=== PATIENT | male | born 1935 | race American Indian/Alaskan Native ===

== ENCOUNTER 2020-08-25 16:37 | Inpatient (IN) | payer MEDICARE, OTHER ==
--- NOTE | 2020-08-25 18:11 | Emergency Department Report ---
Blank Doc - Documentation Documentation: 85-year-old male that was brought by daughter for altered mental status. Shannon zelaya stated has been hallucinating and was sent by urgent care for abnormal EKG and possible UTI. Exam: Neuro exam unremarkable. No one-sided weakness or facial drooping. 1- This is a initial triage assessment/medical screening only. Full assessment and work-up will be completed once the patient is in proper hospital gown, ED bed and in a private room setting. This initial assessment/diagnostic orders/clinical plan/ treatment(s) is/are subject to change based on pt's health status, clinical progression and re-assessment by fellow clinical providers in the ED. Further treatment and workup at subsequent clinical providers discretion. Patient/guardians urged not to elope from ED as their condition may be serious if not clinically assessed and managed. 2-patient consulted with Dr. Georges and agrees to the ED plan of care. 3-sepsis/AMS orders
--- NOTE | 2020-08-25 18:45 | Cat Scan Report ---
CT head/brain wo con INDICATION / CLINICAL INFORMATION: 85 years Male; Altered Mental Status. TECHNIQUE: Routine CT head without contrast. All CT scans at this location are performed using CT dos e reduction for ALARA by means of automated exposure control. COMPARISON: None. FINDINGS: BRAIN / INTRACRANIAL CONTENTS: The motion degrades the image quality despite repeat imaging. 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 There is also mild to moderate cerebral atrophy with associated prominence of the ventricular sy stem. The findings appear most consistent with foci of calcification within the basal ganglia. There is no gross CT evidence of acute intracranial hemorrhage or significant mass effect. There is relative incr eased attenuation within an anterior insular branch of the right MCA which may be exacerbated by the degree of motion. There is no clear evidence of significant edema and correlation be needed regarding thrombus. ORBITS: No significant abnormality of visualized orbits. SINUSES / MASTOIDS: There is a small air-fluid level along the posterior left maxillary sinus. CRANIOCERVICAL JUNCTION: No significant abnormality. ADDITIONAL FINDINGS: None. IMPRESSION: 1. The study is limited by motion. However, there is extensive microvascular angiopathy as described without clear CT evidence of acute intracranial hemorrhage. 2. There is relative increased attenuation within an anterior branch of the right MCA as described at . Signer Name: Ayo Pettit MD Signed: 08/25/2020 6:40 PM Workstation Name: [id number]
[2020-08-25 18:52] LABS: Bilirubin,Urine NEG (Negative); Blood,Urine LG (Negative); Color,Urine Yellow (Yellow); Urobilinogen,Urine < 2.0 mg/dL (<2.0)
[2020-08-25 18:53] LABS: Alanine Aminotransferase 10 units/L (7-56); Albumin 4.7 g/dL (3.9-5); BUN/Creatinine Ratio 13; Blood Urea Nitrogen 12 mg/dL (9-20); Calcium 9.8 mg/dL (8.4-10.2); Hemolysis Index 12
[2020-08-25 18:56] LABS: RBC,Urine > 182.0 /HPF (0.0-6.0)
[2020-08-25 18:57] LABS: Basophils # (Auto) 0.1 K/mm3 (0.0-0.1); Basophils % (Auto) 0.6 % (0.0-1.8); Eosinophils # (Auto) 0.2 K/mm3 (0.0-0.4); Eosinophils % (Auto) 1.4 % (0.0-4.3); Hematocrit 42.7 % (35.5-45.6); Hemoglobin 14.2 gm/dl (11.8-15.2); Lymphocytes # (Auto) 2.4 K/mm3 (1.2-5.4); Lymphocytes % (Auto) 17.4 % (13.4-35.0); Mean Corpuscular HGB Conc 33 % (32-34); Mean Corpuscular Volume 89 fl (84-94); Monocytes # (Auto) 0.9 K/mm3 (0.0-0.8); Monocytes % (Auto) 6.3 % (0.0-7.3); Platelet Count 249 K/mm3 (140-440); Red Blood Count 4.77 M/mm3 (3.65-5.03); Red Cell Distribution Width 16.5 % (13.2-15.2)
[2020-08-25 19:24] LABS: INR 1.03 (0.87-1.13)
[2020-08-25 19:25] LABS: Partial Thromboplastin Time 32.5 Sec. (24.2-36.6)
--- NOTE | 2020-08-25 19:57 | XRay Report ---
CHEST 1 VIEW, 08/25/2020 6:43 PM CLINICAL INFORMATION/INDICATION: Hypertension COMPARISON: None. FINDINGS: SUPPORT DEVICES: None. HEART: There is mild enlargement of the cardiac silhouette. LUNGS/PLEURA: The lungs are clear of focal airspace disease or significant pleural effusion. ADDITIONAL FINDINGS: No additional acute findings. IMPRESSION: 1. No evidence of acute cardiopulmonary process. Signer Name: Elizabeth Nava MD Signed: 08/25/2020 7:52 PM Workstation Name: [id number]
--- NOTE | 2020-08-25 21:51 | Emergency Department Report ---
ED Altered Mental Status HPI - General Chief Complaint: High BP Stated Complaint: HIGH BLOOD PRESSURE PUI?: No Time Seen by Provider: 08/25/20 21:38 Source: patient Mode of arrival: Wheelchair Limitations: No Limitations - History of Present Illness Initial Comments: Patient is an 85-year-old male presents emergency room with complaints of altered mental status and blood pressure. Patient's daughter is at bedside. History is per daughter and patient. Patient is currently alert and oriented x1. Patient is oriented to self only. Patient is disoriented to time and place and situation. Patient answers most questions appropriately though. Patient denies pain. Patient states she is feeling tired. Patient denies chest pain or shortness of breath. Patient's daughter states that the patient has elevated blood pressure and has been altered with confusion and hallucinations. Patient's daughter states that the patient is normally with it. Patient's daughter states that the patient is not at baseline. Patient's daughter states that the patient is compliant with all his blood pressure medications. Patient's daughter states they went to an urgent care and they sent her here to be evaluated. Patient denies recent travel. Patient denies recent international travel. Patient denies exposure to the novel coronavirus. Patient denies sick contacts. Patient denies fever and chills. Patient denies cough. Patient denies diarrhea. Patient denies coming in contact with anybody with symptoms of the novel coronavirus. Complaint: altered mental status, confusion -: Sudden Severity: severe Consistency of Symptoms: waxing and waning Associated Symptoms: malaise, foul smelling urine - Related Data Allergies Allergy/AdvReac Type Severity Reaction Status Date / Time No Known Allergies Allergy Unverified 08/25/20 17:43 ED Review of Systems ROS: Stated complaint: HIGH BLOOD PRESSURE Other details as noted in HPI Comment: Unobtainable due to pts medical conditions ED Past Medical Hx - Past Medical History Previous Medical History?: Yes Hx Hypertension: Yes Hx Asthma: Yes - Surgical History Past Surgical History?: Yes Additional Surgical History: right hip surgery - Family History Family history: no significant - Social History Smoking Status: Never Smoker Substance Use Type: None ED Physical Exam - General Limitations: No Limitations General appearance: alert, in no apparent distress - Head Head exam: Present: atraumatic, normocephalic - Eye Eye exam: Present: normal appearance, PERRL Pupils: Present: normal accommodation - ENT ENT exam: Present: mucous membranes dry - Neck Neck exam: Present: normal inspection - Respiratory Respiratory exam: Present: normal lung sounds bilaterally. Absent: respiratory distress - Cardiovascular Cardiovascular Exam: Present: regular rate, normal rhythm. Absent: systolic murmur, diastolic murmur, rubs, gallop - GI/Abdominal GI/Abdominal exam: Present: soft, normal bowel sounds - Rectal Rectal exam: Present: deferred - Extremities Exam Extremities exam: Present: normal inspection - Back Exam Back exam: Present: normal inspection - Neurological Exam Neurological exam: Present: alert, altered - Psychiatric Psychiatric exam: Present: normal affect, normal mood - Skin Skin exam: Present: warm, dry, intact, normal color. Absent: rash - Assessment Assessment Interval: Baseline - Level of Consciousness 1a. Level of Consciousness: alert/keenly responsive - LOC Questions 1b. LOC Questions: answers 1 question correctly - LOC Command 1c. LOC Commands: performs tasks correctly - Best Gaze 2. Best Gaze: normal - Visual 3. Visual: no visual loss - Facial Palsy 4. Facial Palsy: normal symmetrical movement - Motor Arm 5a. Motor Arm Left: no drift 5b. Motor Arm Right: no drift - Motor Leg 6a. Motor Leg Left: no drift 6b. Motor Leg Right: no drift - Limb Ataxia 7. Limb Ataxia: absent - Sensory 8. Sensory: normal - Best Language 9. Best Language: no aphasia - Dysarthria 10. Dysarthria: normal - Extinction and Inattention 11. 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 Patient's blood pressure still elevated. Patient's blood pressure continues to increase. Patient will be given 20 of hydralazine, IV fluids and IV antibiotics. 08/25/20 21:53 Reevaluation #2: Patient's blood pressure is better. I discussed all results with patient. I discussed plan of care with patient. Patient agrees with plan of care and admission. Patient to be admitted to the hospitalist service. Patient's daughter agrees with admission and plan of care. 08/25/20 22:43 - Lab Data Result diagrams: 08/25/20 18:12 08/25/20 18:12 Lab Results 08/25/20 08/25/20 08/25/20 Range/Units 18:12 18:12 18:12 WBC 13.8 H (4.5-11.0) K/mm3 RBC 4.77 (3.65-5.03) M/mm3 Hgb 14.2 (11.8-15.2) gm/dl Hct 42.7 (35.5-45.6) % MCV 89 (84-94) fl MCH 30 (28-32) pg MCHC 33 (32-34) % RDW 16.5 H (13.2-15.2) % Plt Count 249 (140-440) K/mm3 Lymph % (Auto) 17.4 (13.4-35.0) % [place] % (Auto) 6.3 (0.0-7.3) % Eos % (Auto) 1.4 (0.0-4.3) % Baso % (Auto) 0.6 (0.0-1.8) % Lymph # (Auto) 2.4 (1.2-5.4) K/mm3 [place] # (Auto) 0.9 H (0.0-0.8) K/mm3 Eos # (Auto) 0.2 (0.0-0.4) K/mm3 Baso # (Auto) 0.1 (0.0-0.1) K/mm3 Seg Neutrophils % 74.3 H (40.0-70.0) % Seg Neutrophils # 10.3 H (1.8-7.7) K/mm3 PT 14.1 (12.2-14.9) Sec. INR 1.03 (0.87-1.13) APTT 32.5 (24.2-36.6) Sec. Sodium 134 L (137-145) mmol/L Potassium 4.1 (3.6-5.0) mmol/L Chloride 98.5 (98-107) mmol/L Carbon Dioxide 19 L (22-30) mmol/L Anion Gap 21 mmol/L BUN 12 (9-20) mg/dL Creatinine 0.9 (0.8-1.3) mg/dL Estimated GFR > 60 ml/min BUN/Creatinine Ratio 13 % Glucose 94 (75-100) mg/dL Lactic Acid (0.7-2.0) mmol/L Calcium 9.8 (8.4-10.2) mg/dL Magnesium 2.10 (1.7-2.3) mg/dL Total Bilirubin 0.50 (0.1-1.2) mg/dL AST 20 (5-40) units/L ALT 10 (7-56) units/L Alkaline Phosphatase 138 H (35-129) units/L Total Creatine Kinase (55-170) units/L Troponin T < 0.010 (0.00-0.029) ng/mL Total Protein 7.9 (6.3-8.2) g/dL Albumin 4.7 (3.9-5) g/dL Albumin/Globulin Ratio 1.5 % TSH (0.270-4.200) mlU/mL Urine Color (Yellow) Urine Turbidity (Clear) Urine pH (5.0-7.0) Ur Specific [place] (1.003-1.030) Urine Protein (Negative) mg/dL Urine Glucose (UA) (Negative) mg/dL Urine Ketones (Negative) mg/dL Urine Blood (Negative) Urine Nitrite (Negative) Urine Bilirubin (Negative) Urine Urobilinogen (<2.0) mg/dL Ur Leukocyte Esterase (Negative) Urine WBC (Auto) (0.0-6.0) /HPF Urine RBC (Auto) (0.0-6.0) /HPF U Epithel Cells (Auto) (0-13.0) /HPF Urine Yeast (Budding) /HPF 08/25/20 08/25/20 08/25/20 Range/Units 18:12 18:12 18:12 WBC (4.5-11.0) K/mm3 RBC (3.65-5.03) M/mm3 Hgb (11.8-15.2) gm/dl Hct (35.5-45.6) % MCV (84-94) fl MCH (28-32) pg MCHC (32-34) % RDW (13.2-15.2) % Plt Count (140-440) K/mm3 Lymph % (Auto) (13.4-35.0) % [place] % (Auto) (0.0-7.3) % Eos % (Auto) (0.0-4.3) % Baso % (Auto) (0.0-1.8) % Lymph # (Auto) (1.2-5.4) K/mm3 [place] # (Auto) (0.0-0.8) K/mm3 Eos # (Auto) (0.0-0.4) K/mm3 Baso # (Auto) (0.0-0.1) K/mm3 Seg Neutrophils % (40.0-70.0) % Seg Neutrophils # (1.8-7.7) K/mm3 PT (12.2-14.9) Sec. INR (0.87-1.13) APTT (24.2-36.6) Sec. Sodium (137-145) mmol/L Potassium (3.6-5.0) mmol/L Chloride (98-107) mmol/L Carbon Dioxide (22-30) mmol/L Anion Gap mmol/L BUN (9-20) mg/dL Creatinine (0.8-1.3) mg/dL Estimated GFR ml/min BUN/Creatinine Ratio % Glucose (75-100) mg/dL Lactic Acid 1.90 (0.7-2.0) mmol/L Calcium (8.4-10.2) mg/dL Magnesium (1.7-2.3) mg/dL Total Bilirubin (0.1-1.2) mg/dL AST (5-40) units/L ALT (7-56) units/L Alkaline Phosphatase (35-129) units/L Total Creatine Kinase 163 (55-170) units/L Troponin T (0.00-0.029) ng/mL Total Protein (6.3-8.2) g/dL Albumin (3.9-5) g/dL Albumin/Globulin Ratio % TSH 3.880 (0.270-4.200) mlU/mL Urine Color (Yellow) Urine Turbidity (Clear) Urine pH (5.0-7.0) Ur Specific [place] (1.003-1.030) Urine Protein (Negative) mg/dL Urine Glucose (UA) (Negative) mg/dL Urine Ketones (Negative) mg/dL Urine Blood (Negative) Urine Nitrite (Negative) Urine Bilirubin (Negative) Urine Urobilinogen (<2.0) mg/dL Ur Leukocyte Esterase (Negative) Urine WBC (Auto) (0.0-6.0) /HPF Urine RBC (Auto) (0.0-6.0) /HPF U Epithel Cells (Auto) (0-13.0) /HPF Urine Yeast (Budding) /HPF 08/25/20 08/25/20 Range/Units 20:31 Unknown WBC (4.5-11.0) K/mm3 RBC (3.65-5.03) M/mm3 Hgb (11.8-15.2) gm/dl Hct (35.5-45.6) % MCV (84-94) fl MCH (28-32) pg MCHC (32-34) % RDW (13.2-15.2) % Plt Count (140-440) K/mm3 Lymph % (Auto) (13.4-35.0) % [place] % (Auto) (0.0-7.3) % Eos % (Auto) (0.0-4.3) % Baso % (Auto) (0.0-1.8) % Lymph # (Auto) (1.2-5.4) K/mm3 [place] # (Auto) (0.0-0.8) K/mm3 Eos # (Auto) (0.0-0.4) K/mm3 Baso # (Auto) (0.0-0.1) K/mm3 Seg Neutrophils % (40.0-70.0) % Seg Neutrophils # (1.8-7.7) K/mm3 PT (12.2-14.9) Sec. INR (0.87-1.13) APTT (24.2-36.6) Sec. Sodium (137-145) mmol/L Potassium (3.6-5.0) mmol/L Chloride (98-107) mmol/L Carbon Dioxide (22-30) mmol/L Anion Gap mmol/L BUN (9-20) mg/dL Creatinine (0.8-1.3) mg/dL Estimated GFR ml/min BUN/Creatinine Ratio % Glucose (75-100) mg/dL Lactic Acid (0.7-2.0) mmol/L Calcium (8.4-10.2) mg/dL Magnesium (1.7-2.3) mg/dL Total Bilirubin (0.1-1.2) mg/dL AST (5-40) units/L ALT (7-56) units/L Alkaline Phosphatase (35-129) units/L Total Creatine Kinase (55-170) units/L Troponin T < 0.010 (0.00-0.029) ng/mL Total Protein (6.3-8.2) g/dL Albumin (3.9-5) g/dL Albumin/Globulin Ratio % TSH (0.270-4.200) mlU/mL Urine Color Yellow (Yellow) Urine Turbidity Cloudy (Clear) Urine pH 5.0 (5.0-7.0) Ur Specific [place] 1.019 (1.003-1.030) Urine Protein 100 mg/dl (Negative) mg/dL Urine Glucose (UA) Neg (Negative) mg/dL Urine Ketones Tr (Negative) mg/dL Urine Blood Lg (Negative) Urine Nitrite Neg (Negative) Urine Bilirubin Neg (Negative) Urine Urobilinogen < 2.0 (<2.0) mg/dL Ur Leukocyte Esterase Mod (Negative) Urine WBC (Auto) 182.0 H (0.0-6.0) /HPF Urine RBC (Auto) > 182.0 (0.0-6.0) /HPF U Epithel Cells (Auto) < 1.0 (0-13.0) /HPF Urine Yeast (Budding) 1+ /HPF - EKG Data -: EKG Interpreted by In EKG shows normal: sinus rhythm, axis, intervals, QRS complexes, ST-T waves Rate: tachycardia - Radiology Data Radiology results: report reviewed, image reviewed interpreted by me: Chest x-ray: No pneumonia, no pneumothorax, no foreign body, no osseous findings, no acute findings CHEST 1 VIEW, 08/25/2020 6:43 PM CLINICAL INFORMATION/INDICATION: Hypertension COMPARISON: None. FINDINGS: SUPPORT DEVICES: None. HEART: There is mild enlargement of the cardiac silhouette. LUNGS/PLEURA: The lungs are clear of focal airspace disease or significant pleural effusion. ADDITIONAL FINDINGS: No additional acute findings. IMPRESSION: 1. No evidence of acute cardiopulmonary process. CT head/brain wo con INDICATION / CLINICAL INFORMATION: 85 years Male; Altered Mental Status. TECHNIQUE: Routine CT head without contrast. All CT scans at this location are performed using CT dose reduction for ALARA by means of automated exposure control. COMPARISON: None. FINDINGS: BRAIN / INTRACRANIAL CONTENTS: The motion degrades the image quality despite re peat imaging. 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 There is also mild to moderate cerebral atrophy with associated prominence of the ventricular system. The findings appear most consistent with foci of calcification within the basal ganglia. There is no gross CT evidence of acute intracranial hemorrhage or significant mass effect. There is relative increased attenuation within an anterior insular branch of the right MCA which may be exacerbated by the degree of motion. There is no clear evidence of significant edema and correlation be needed regarding thrombus. ORBITS: No significant abnormality of visualized orbits. SINUSES / MASTOIDS: There is a small air-fluid level along the posterior left maxillary sinus. CRANIOCERVICAL JUNCTION: No significant abnormality. ADDITIONAL FINDINGS: None. IMPRESSION: 1. The study is limited by motion. However, there is extensive microvascular angiopathy as described without clear CT evidence of acute intracranial hemorrhage. 2. There is relative increased attenuation within an anterior branch of the right MCA as described at. - Medical Decision Making Patient is a 85-year-old male who presents emergency room with complaints of a ltered status and elevated blood pressure. Patient is altered and has only oriented x1. Patient had a head CT which was negative for acute finding. Patient had a chest x-ray which was negative for acute findings. I personally reviewed the chest x-ray. Patient had a EKG done and showed normal sinus tachycardia and no ST changes. I personally reviewed the EKG. Patient had labs done which were essentially unremarkable except for a UTI and elevated WBC. Patient found to have extremely elevated blood pressure and hypertensive emergency. Patient given hydralazine 20 mg IV. Patient blood pressure improved. Patient also given IV fluids and IV antibiotics. Patient admitted to the hospital service for further evaluation and treatment. Critical care time documented due to the multiple reassessments, prolonged time at the bedside, interpretation of diagnostics and labs. - Differential Diagnosis AMS, UTI, sepsis, tachycardia, hypertensive emergency, Critical Care Time: Yes Critical care time in (mins) excluding proc time.: 35 Critical care attestation.: If time is entered above; I have spent that time in minutes in the direct care of this critically ill patient, excluding procedure time. Critical Care Time: 35 minutes ED Disposition Clinical Impression: Tachycardia, Hypertensive urgency Altered mental status Qualifiers: Altered mental status type: unspecified Qualified Code(s): R41.82 - Altered mental status, unspecified UTI (urinary tract infection) Qualifiers: Urinary tract infection type: acute cystitis Hematuria presence: with hematuria Qualified Code(s): N30.01 - Acute cystitis with hematuria Sepsis Qualifiers: Sepsis type: sepsis due to unspecified organism Sepsis acute organ dysfunction status: with acute organ dysfunction Severe sepsis acute organ dysfunction type: encephalopathy Severe sepsis shock status: without septic shock Qualified Code(s): A41.9 - Sepsis, unspecified organism Disposition: [id number] OP ADMIT IP TO THIS HOSP Is pt being admited?: Yes Does the pt Need Aspirin: No Condition: Critical Time of Disposition: 22:44
[2020-08-25] MEDS ORDERED: cefTRIAXone/NS 2 GM/100 ML 2 GM/100 ML BAG IV ONE (21:52)
[2020-08-25] MEDS ORDERED: hydrALAZINE 20 MG/1 ML INJ IV ONE (21:52)
[2020-08-25] MEDS ORDERED: SODIUM CHLORIDE 0.9% 500 ML 500 ML IV ONE (21:52)
[2020-08-25] MEDS ORDERED: ONDANSETRON 4 MG/2 ML INJ IV PRN ×2 (22:44→23:05)
[2020-08-25] MEDS ORDERED: D5W/0.45% NACL 1,000 ML IV SCH (23:00)
[2020-08-25] MEDS ORDERED: oxyCODONE /ACETAMINOPHEN 5-325MG TAB PO PRN (23:02)
[2020-08-25] MEDS ORDERED: NALOXONE 0.4 MG/1 ML INJ IV PRN (23:02)
[2020-08-25] MEDS ORDERED: MORPHINE 4 MG/1 ML INJ IV PRN (23:02)
[2020-08-25] MEDS ORDERED: hydrALAZINE 20 MG/1 ML INJ IV PRN (23:05)
--- NOTE | 2020-08-25 23:25 | History and Physical Report ---
History of Present Illness Date of examination: 08/25/20 Date of admission: 08/25/2020 Chief complaint: AMS, elevated BP History of present illness: 85-year-old -[place] male who is a resident of the [facility], with history of hypertension and asthma who presents [facility] ED with complaints of altered mental status and elevated blood pressure. Of note patient is oriented x1-2, able to answer short questions appropriately, but unable to provide histo ry. History is provided by medical reports and review of medical records. Patient's daughter reports taking her father to urgent care after noticing that he was confused and was hallucinating. Per daughter patient is not at baseline and is usually " with it", so she decided to take an urgent care. While the urgent care at urgent care pt BP was elevated and he was referred to ER for further evaluation and treatment. Daughter reports compliance with BP meds. Past History Past Medical History: hypertension, other (asthma) Past Surgical History: Other (right hip surgery) Social history: full code, other (lives in [facility] denies: smoking, alcohol abuse, prescription drug abuse, IV drug use Family history: no significant family history Medications and Allergies Allergies Allergy/AdvReac Type Severity Reaction Status Date / Time No Known Allergies Allergy Verified 08/25/20 22:52 Active Meds: Active Medications Acetaminophen (Acetaminophen 325 Mg Tab) 650 mg PO Q4H PRN PRN Reason: Pain MILD(1-3)/Fever >100.5/PULLIAM Hydralazine HCl (Hydralazine 20 Mg/1 Ml Inj) 10 mg IV Q6HR PRN PRN Reason: Blood Pressure Dextrose/Sodium Chloride (D5/0.45ns) 1,000 mls @ 75 mls/hr IV DIRECT ML Stop: 08/26/20 12:00 Ceftriaxone Sodium (Rocephin/Ns 1 Gm/50 Ml) 1 gm in 50 mls @ 100 mls/hr IV Q24H ML; Protocol Morphine Sulfate (Morphine 4 Mg/1 Ml Inj) 2 mg IV Q4H PRN PRN Reason: Pain , Severe (7-10) Naloxone HCl (Naloxone 0.4 Mg/1 Ml Inj) 0.1 mg IV Q2MIN PRN PRN Reason: Res Rate </= 8 or 02 SAT < 92% Ondansetron HCl (Ondansetron 4 Mg/2 Ml Inj) 4 mg IV Q6H PRN PRN Reason: Nausea And Vomiting Oxycodone/Acetaminophen (Oxycodone /Acetaminophen 5-325mg Tab) 1 tab PO Q6H PRN PRN Reason: Pain, Moderate (4-6) Sodium Chloride (Sodium Chloride 0.9% 10 Ml Flush Syringe) 10 ml IV BID ML Sodium Chloride (Sodium Chloride 0.9% 10 Ml Flush Syringe) 10 ml IV PRN PRN PRN Reason: LINE FLUSH Review of Systems ROS unobtainable: due to mental status Exam - Physical Exam Narrative exam: Physical exam General appearance: Present: No acute distress, awake, oriented x1-2, older adult, -[place] male - EENT Eyes: Present: PERRL, EOM intact ENT: hearing intact, normal dentition - Neck Neck: Present: supple, normal ROM - Respiratory Respiratory effort: Non-labored Respiratory: Clear throughout - Cardiovascular Heart rate: 110 (bpm) Rhythm: Sinus tachycardia Heart Sounds: Present: S1 & S2. Absent: rub, click - Extremities Extremities: no ischemia, pulses intact, - Peripheral Assessment Peripheral Pulses: within normal limits - Abdominal General gastrointestinal: soft, non-tender, normal bowel sounds - Integumentary Integumentary: Present: warm, dry - Musculoskeletal Musculoskeletal: Able to move all extremities, generalized weakness -Neurological Neurological: CN II-XII intact - Psychiatric Psychiatric:cooperative - Constitutional Vitals: Temp Pulse Resp BP Pulse Ox 97.7 F 100 H 21 162/97 100 08/25/20 21:30 08/25/20 23:00 08/25/20 23:00 08/25/20 23:00 08/25/20 23:00 HEART Score - HEART Score Troponin: Troponin T < 0.010 ng/mL (0.00-0.029) 08/25/20 20:31 Results - Labs CBC & Chem 7: 08/25/20 18:12 08/25/20 18:12 Labs: Laboratory Last Values WBC 13.8 K/mm3 (4.5-11.0) H 08/25/20 18:12 RBC 4.77 M/mm3 (3.65-5.03) 08/25/20 18:12 Hgb 14.2 gm/dl (11.8-15.2) 08/25/20 18:12 Hct 42.7 % (35.5-45.6) 08/25/20 18:12 MCV 89 fl (84-94) 08/25/20 18:12 MCH 30 pg (28-32) 08/25/20 18:12 MCHC 33 % (32-34) 08/25/20 18:12 RDW 16.5 % (13.2-15.2) H 08/25/20 18:12 Plt Count 249 K/mm3 (140-440) 08/25/20 18:12 Lymph % (Auto) 17.4 % (13.4-35.0) 08/25/20 18:12 [place] % (Auto) 6.3 % (0.0-7.3) 08/25/20 18:12 Eos % (Auto) 1.4 % (0.0-4.3) 08/25/20 18:12 Baso % (Auto) 0.6 % (0.0-1.8) 08/25/20 18:12 Lymph # (Auto) 2.4 K/mm3 (1.2-5.4) 08/25/20 18:12 [place] # (Auto) 0.9 K/mm3 (0.0-0.8) H 08/25/20 18:12 Eos # (Auto) 0.2 K/mm3 (0.0-0.4) 08/25/20 18:12 Baso # (Auto) 0.1 K/mm3 (0.0-0.1) 08/25/20 18:12 Seg Neutrophils % 74.3 % (40.0-70.0) H 08/25/20 18:12 Seg Neutrophils # 10.3 K/mm3 (1.8-7.7) H 08/25/20 18:12 PT 14.1 Sec. (12.2-14.9) 08/25/20 18:12 INR 1.03 (0.87-1.13) 08/25/20 18:12 APTT 32.5 Sec. (24.2-36.6) 08/25/20 18:12 Sodium 134 mmol/L (137-145) L 08/25/20 18:12 Potassium 4.1 mmol/L (3.6-5.0) 08/25/20 18:12 Chloride 98.5 mmol/L (98-107) 08/25/20 18:12 Carbon Dioxide 19 mmol/L (22-30) L 08/25/20 18:12 Anion Gap 21 mmol/L 08/25/20 18:12 BUN 12 mg/dL (9-20) 08/25/20 18:12 Creatinine 0.9 mg/dL (0.8-1.3) 08/25/20 18:12 Estimated GFR > 60 ml/min 08/25/20 18:12 BUN/Creatinine Ratio 13 % 08/25/20 18:12 Glucose 94 mg/dL (75-100) 08/25/20 18:12 Lactic Acid 1.90 mmol/L (0.7-2.0) 08/25/20 18:12 Calcium 9.8 mg/dL (8.4-10.2) 08/25/20 18:12 Magnesium 2.10 mg/dL (1.7-2.3) 08/25/20 18:12 Total Bilirubin 0.50 mg/dL (0.1-1.2) 08/25/20 18:12 AST 20 units/L (5-40) 08/25/20 18:12 ALT 10 units/L (7-56) 08/25/20 18:12 Alkaline Phosphatase 138 units/L (35-129) H 08/25/20 18:12 Total Creatine Kinase 163 units/L (55-170) 08/25/20 18:12 Troponin T < 0.010 ng/mL (0.00-0.029) 08/25/20 20:31 Total Protein 7.9 g/dL (6.3-8.2) 08/25/20 18:12 Albumin 4.7 g/dL (3.9-5) 08/25/20 18:12 Albumin/Globulin Ratio 1.5 % 08/25/20 18:12 TSH 3.880 mlU/mL (0.270-4.200) 08/25/20 18:12 Urine Color Yellow (Yellow) 08/25/20 Unknown Urine Turbidity Cloudy (Clear) 08/25/20 Unknown Urine pH 5.0 (5.0-7.0) 08/25/20 Unknown Ur Specific [place] 1.019 (1.003-1.030) 08/25/20 Unknown Urine Protein 100 mg/dl mg/dL (Negative) 08/25/20 Unknown Urine Glucose (UA) Neg mg/dL (Negative) 08/25/20 Unknown Urine Ketones Tr mg/dL (Negative) 08/25/20 Unknown Urine Blood Lg (Negative) 08/25/20 Unknown Urine Nitrite Neg (Negative) 08/25/20 Unknown Urine Bilirubin Neg (Negative) 08/25/20 Unknown Urine Urobilinogen < 2.0 mg/dL (<2.0) 08/25/20 Unknown Ur Leukocyte Esterase Mod (Negative) 08/25/20 Unknown Urine WBC (Auto) 182.0 /HPF (0.0-6.0) H 08/25/20 Unknown Urine RBC (Auto) > 182.0 /HPF (0.0-6.0) 08/25/20 Unknown U Epithel Cells (Auto) < 1.0 /HPF (0-13.0) 08/25/20 Unknown Urine Yeast (Budding) 1+ /HPF 08/25/20 Unknown Microbiology: Microbiology 08/25/20 18:25 Peripheral/Venous Blood Culture - Preliminary Culture in Progress 08/25/20 18:12 Peripheral/Venous Blood Culture - Preliminary Culture in Progress - Imaging and Cardiology Imaging and Cardiology: CXR: FINDINGS: SUPPORT DEVICES: None. HEART: There is mild enlargement of the cardiac silhouette. LUNGS/PLEURA: The lungs are clear of focal airspace disease or significant pleural effusion. ADDITIONAL FINDINGS: No additional acute findings. IMPRESSION: 1. No evidence of acute cardiopulmonary process. CT Head: FINDINGS: BRAIN / INTRACRANIAL CONTENTS: The motion degrades the image quality despite repeat imaging. 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 There is also mild to moderate cerebral atrophy with associated prominence of the ventricular system. The findings appear most consistent with foci of calcification within the basal ganglia. There is no gross CT evidence of acute intracranial hemorrhage or significant mass effect. There is relative increased attenuation within an anterior insular branch of the right MCA which may be exacerbated by the degree of motion. There is no clear evidence of significant edema and correlation be needed regarding thrombus. ORBITS: No significant abnormality of visualized orbits. SINUSES / MASTOIDS: There is a small air-fluid level along the posterior left maxillary sinus. CRANIOCERVICAL JUNCTION: No significant abnormality. ADDITIONAL FINDINGS: None. IMPRESSION: 1. The study is limited by motion. However, there is extensive microvascular angiopathy as described without clear CT evidence of acute intracranial hemorrhage. 2. There is relative increased attenuation within an anterior branch of the right MCA as described at. Assessment and Plan Assessment and plan: Hypertensive urgency -BP on admission 220/120 -Received IV hydralazine in ED, and was responsive -Hx Hypertension -Continue to monitor BP -Resume home antihypertensive once medication reconciliation has been completed meds to optimize BP -IV antihypertensive when necessary Sepsis -Leukocytosis 13.8 -Tachycardia 110 -AMS -Urine and blood cultures pending -Start IVF and IV abx -Likely secondary to UTI Urinary tract infection -UA positive for UTI -urine wbc >182, moderate leukocyte -Urine culture pending -on IV Abx Acute encephalopathy -metabolic -CT head negative -Afebrile, no leukocytosis -Blood and urine cultures pending -Neuro checks -PT/OT eval pending DVT & GI PPX -On heparin and pepcid Advance Directives: No VTE prophylaxis?: Chemical, Mechanical Plan of care discussed with patient/family: Yes
--- NOTE | 2020-08-26 08:31 | Progress Note ---
Assessment and Plan Assessment and plan: Today's labs are not done for unknown reason --Acute metabolic encephalopathy Multifactorial, dementia, sepsis due to UTI, hypertensive urgency Treat the underlying cause, neurochecks Empiric antibiotics, follow cultures, supportive care CT head negative for acute abnormality CT head :extensive microvascular angiopathy relative increased attenuation within the anterior branch of the right MCA no clear evidence of acute intracranial hemorrhage chest x-ray no acute abnormality noted no acute abnorma lity noted patient feels better no new complaints closely monitor the patient and adjust management as needed we will closely monitor patient and adjust management as needed --Hypertensive urgency; present on admission;220/120 Moderate control, blood pressure this morning is 178/122 Add metoprolol 25 mg twice a day, hydralazine 25 mg 3 times a day And as needed IV hydralazine. Closely monitor and adjust the dose as needed --Sepsis secondary to UTI Leukocytosis 13.8 Tachycardia 110 AMS, UA consistent with UTI Continue empiric antibiotics, follow cultures ID consult if needed --Leukocytosis; Secondary to UTI Treat the underlying cause and trend WBC --Mild hyponatremia; Closely monitor electrolytes IV normal saline as needed --DVT and GI prophylaxis Subcu heparin and oral pepcid --Full CODE STATUS We will closely monitor the patient and adjust the management as needed Plan of care reviewed with the patient, patient's nurse and the case management We will try to contact family to update on the patient History Interval history: I have seen and examined the patient at the bedside Patient's chart and medications reviewed Patient was admitted with altered level of consciousness And uncontrolled blood pressures Patient feels slightly better today Confused, trying to get out of bed Hospitalist Physical - Constitutional Vitals: Temp Pulse Resp BP Pulse Ox 96.5 F L 105 H 18 178/122 99 08/26/20 04:23 08/26/20 02:00 08/26/20 04:23 08/26/20 04:23 08/26/20 02:00 General appearance: Present: no acute distress, well-nourished, other (Agitated and confused) - EENT Eyes: Present: PERRL, EOM intact - Neck Neck: Present: supple, normal ROM - Respiratory Respiratory effort: normal Respiratory: bilateral: diminished, negative: rales, rhonchi, wheezing - Cardiovascular Rhythm: regular Heart Sounds: Present: S1 & S2 - Extremities Extremities: no ischemia, No edema - Abdominal General gastrointestinal: soft, non-tender, non-distended, normal bowel sounds - Integumentary Integumentary: Present: clear, warm - Psychiatric Psychiatric: agitated, other - Neurologic Neurologic: moves all extremities (Confused) HEART Score - HEART Score Troponin: Troponin T < 0.010 ng/mL (0.00-0.029) 08/25/20 20:31 Results - Labs CBC & Chem 7: 08/25/20 18:12 08/25/20 18:12 Labs: Laboratory Last Values WBC 13.8 K/mm3 (4.5-11.0) H 08/25/20 18:12 RBC 4.77 M/mm3 (3.65-5.03) 08/25/20 18:12 Hgb 14.2 gm/dl (11.8-15.2) 08/25/20 18:12 Hct 42.7 % (35.5-45.6) 08/25/20 18:12 MCV 89 fl (84-94) 08/25/20 18:12 MCH 30 pg (28-32) 08/25/20 18:12 MCHC 33 % (32-34) 08/25/20 18:12 RDW 16.5 % (13.2-15.2) H 08/25/20 18:12 Plt Count 249 K/mm3 (140-440) 08/25/20 18:12 Lymph % (Auto) 17.4 % (13.4-35.0) 08/25/20 18:12 [place] % (Auto) 6.3 % (0.0-7.3) 08/25/20 18:12 Eos % (Auto) 1.4 % (0.0-4.3) 08/25/20 18:12 Baso % (Auto) 0.6 % (0.0-1.8) 08/25/20 18:12 Lymph # (Auto) 2.4 K/mm3 (1.2-5.4) 08/25/20 18:12 [place] # (Auto) 0.9 K/mm3 (0.0-0.8) H 08/25/20 18:12 Eos # (Auto) 0.2 K/mm3 (0.0-0.4) 08/25/20 18:12 Baso # (Auto) 0.1 K/mm3 (0.0-0.1) 08/25/20 18:12 Seg Neutrophils % 74.3 % (40.0-70.0) H 08/25/20 18:12 Seg Neutrophils # 10.3 K/mm3 (1.8-7.7) H 08/25/20 18:12 PT 14.1 Sec. (12.2-14.9) 08/25/20 18:12 INR 1.03 (0.87-1.13) 08/25/20 18:12 APTT 32.5 Sec. (24.2-36.6) 08/25/20 18:12 Sodium 134 mmol/L (137-145) L 08/25/20 18:12 Potassium 4.1 mmol/L (3.6-5.0) 08/25/20 18:12 Chloride 98.5 mmol/L (98-107) 08/25/20 18:12 Carbon Dioxide 19 mmol/L (22-30) L 08/25/20 18:12 Anion Gap 21 mmol/L 08/25/20 18:12 BUN 12 mg/dL (9-20) 08/25/20 18:12 Creatinine 0.9 mg/dL (0.8-1.3) 08/25/20 18:12 Estimated GFR > 60 ml/min 08/25/20 18:12 BUN/Creatinine Ratio 13 % 08/25/20 18:12 Glucose 94 mg/dL (75-100) 08/25/20 18:12 Lactic Acid 1.90 mmol/L (0.7-2.0) 08/25/20 18:12 Calcium 9.8 mg/dL (8.4-10.2) 08/25/20 18:12 Magnesium 2.10 mg/dL (1.7-2.3) 08/25/20 18:12 Total Bilirubin 0.50 mg/dL (0.1-1.2) 08/25/20 18:12 AST 20 units/L (5-40) 08/25/20 18:12 ALT 10 units/L (7-56) 08/25/20 18:12 Alkaline Phosphatase 138 units/L (35-129) H 08/25/20 18:12 Total Creatine Kinase 163 units/L (55-170) 08/25/20 18:12 Troponin T < 0.010 ng/mL (0.00-0.029) 08/25/20 20:31 Total Protein 7.9 g/dL (6.3-8.2) 08/25/20 18:12 Albumin 4.7 g/dL (3.9-5) 08/25/20 18:12 Albumin/Globulin Ratio 1.5 % 08/25/20 18:12 TSH 3.880 mlU/mL (0.270-4.200) 08/25/20 18:12 Urine Color Yellow (Yellow) 08/25/20 Unknown Urine Turbidity Cloudy (Clear) 08/25/20 Unknown Urine pH 5.0 (5.0-7.0) 08/25/20 Unknown Ur Specific [place] 1.019 (1.003-1.030) 08/25/20 Unknown Urine Protein 100 mg/dl mg/dL (Negative) 08/25/20 Unknown Urine Glucose (UA) Neg mg/dL (Negative) 08/25/20 Unknown Urine Ketones Tr mg/dL (Negative) 08/25/20 Unknown Urine Blood Lg (Negative) 08/25/20 Unknown Urine Nitrite Neg (Negative) 08/25/20 Unknown Urine Bilirubin Neg (Negative) 08/25/20 Unknown Urine Urobilinogen < 2.0 mg/dL (<2.0) 08/25/20 Unknown Ur Leukocyte Esterase Mod (Negative) 08/25/20 Unknown Urine WBC (Auto) 182.0 /HPF (0.0-6.0) H 08/25/20 Unknown Urine RBC (Auto) > 182.0 /HPF (0.0-6.0) 08/25/20 Unknown U Epithel Cells (Auto) < 1.0 /HPF (0-13.0) 08/25/20 Unknown Urine Yeast (Budding) 1+ /HPF 08/25/20 Unknown Microbiology: Microbiology 08/25/20 18:25 Peripheral/Venous Blood Culture - Preliminary Culture in Progress 08/25/20 18:12 Peripheral/Venous Blood Culture - Preliminary Culture in Progress Active Medications - Current Medications Current Medications: Generic Name Dose Route Start Last Admin Trade Name Freq PRN Reason Stop Dose Admin Acetaminophen 650 mg 08/25/20 22:44 Acetaminophen 325 Mg Tab PO Q4H PRN Pain MILD(1-3)/Fever >100.5/PULLIAM Hydralazine HCl 10 mg 08/25/20 23:05 08/26/20 01:42 Hydralazine 20 Mg/1 Ml Inj IV 10 mg Q6HR PRN Administration Blood Pressure Dextrose/Sodium Chloride 1,000 mls @ 75 mls/hr 08/25/20 23:00 08/26/20 04:44 D5/0.45ns IV 08/26/20 12:00 75 mls/hr DIRECT ML Administration Ceftriaxone Sodium 1 gm in 50 mls @ 100 mls/hr 08/26/20 22:00 Rocephin/Ns 1 Gm/50 Ml IV Q24H ML Protocol Morphine Sulfate 2 mg 08/25/20 23:02 Morphine 4 Mg/1 Ml Inj IV Q4H PRN Pain , Severe (7-10) Naloxone HCl 0.1 mg 08/25/20 23:02 Naloxone 0.4 Mg/1 Ml Inj IV Q2MIN PRN Res Rate </= 8 or 02 SAT < 92% Ondansetron HCl 4 mg 08/25/20 23:05 Ondansetron 4 Mg/2 Ml Inj IV Q6H PRN Nausea And Vomiting Oxycodone/Acetaminophen 1 tab 08/25/20 23:02 Oxycodone /Acetaminophen 5-325mg Tab PO Q6H PRN Pain, Moderate (4-6) Sodium Chloride 10 ml 08/26/20 10:00 Sodium Chloride 0.9% 10 Ml Flush Syringe IV BID ML Sodium Chloride 10 ml 08/25/20 22:44 Sodium Chloride 0.9% 10 Ml Flush Syringe IV PRN PRN LINE FLUSH
[2020-08-26] MEDS: hydrALAZINE 25 MG TAB PO SCH ×3 (09:46→22:13)
[2020-08-26] MEDS: METOPROLOL TARTRATE 25 MG TAB PO SCH ×2 (09:46→22:14)
[2020-08-26] MEDS: hydrALAZINE 20 MG/1 ML INJ IV PRN (16:27)
[2020-08-26 19:41] LABS: Basophils # (Auto) 0.1 K/mm3 (0.0-0.1); Basophils % (Auto) 0.4 % (0.0-1.8); Eosinophils # (Auto) 0.1 K/mm3 (0.0-0.4); Eosinophils % (Auto) 0.3 % (0.0-4.3); Hematocrit 39.7 % (35.5-45.6); Hemoglobin 13.7 gm/dl (11.8-15.2); Lymphocytes # (Auto) 1.5 K/mm3 (1.2-5.4); Lymphocytes % (Auto) 9.5 % (13.4-35.0); Mean Corpuscular HGB Conc 35 % (32-34); Mean Corpuscular Volume 88 fl (84-94); Monocytes # (Auto) 1.4 K/mm3 (0.0-0.8); Monocytes % (Auto) 8.7 % (0.0-7.3); Platelet Count 276 K/mm3 (140-440); Red Blood Count 4.53 M/mm3 (3.65-5.03); Red Cell Distribution Width 16.1 % (13.2-15.2)
[2020-08-26 19:57] LABS: Blood Urea Nitrogen 7 mg/dL (9-20); Calcium 9.5 mg/dL (8.4-10.2); Hemolysis Index 43
[2020-08-26 20:00] LABS: BUN/Creatinine Ratio 12
[2020-08-26] MEDS: cefTRIAXone/NS 1 GM/50 ML 1 GM/50 ML BAG IV SCH (21:49)
[2020-08-27] MEDS: hydrALAZINE 20 MG/1 ML INJ IV PRN (06:50)
--- NOTE | 2020-08-27 08:07 | Progress Note ---
Assessment and Plan Assessment and plan: --Hypertensive urgency; present on admission;220/120 Moderate control, blood pressure this morning is 177/104 Add metoprolol 25 mg twice a day, increase hydralazine 50 mg 3 times a day And nifedipine 30 mg twice a day and continue as needed IV hydralazine for blood pressure more than 150/90 Partly due to agitation, as needed Haldol for agitation Closely monitor and adjust the antihypertensive meds as needed --Acute toxic metabolic encephalopathy Multifactorial, dementia, sepsis due to UTI, hypertensive urgency, hyponatremia Treat the underlying cause, neurochecks Empiric antibiotics, follow cultures, supportive care CT head :extensive microvascular angiopathy relative increased attenuation in the anterior branch of the right MCA no clear evidence of acute intracranial hemorrhage chest x-ray:no acute abnormality noted --Sepsis secondary to UTI Leukocytosis 13.8, Tachycardia 110 AMS, UA consistent with UTI Continue empiric antibiotics, follow cultures --Leukocytosis; Secondary to UTI, continue empiric antibiotics , trend WBC --Mild hyponatremia; Closely monitor electrolytes IV normal saline as needed --DVT and GI prophylaxis Subcu heparin and oral pepcid --Full CODE STATUS We will closely monitor the patient and adjust the management as needed Plan of care reviewed with the patient, patient's nurse and the case management I called patient's daughter Ms. Pebbles Pinto at [phone] and discussed in detail patient's condition, tests and reports, diagnosis And treatment plan , she had numerous questions answered all of them encouraged her to call back if she has any new questions or concerns. I informed patient's nurse about my conversation with patient's daughter this morning Brief history and daily hospital course: 85-year-old male patient from skilled nursing/assisted living with altered level of consciousness and hypertensive urgency, work-up is consistent with urinary tract infection, electrolyte imbalance. Blood pressure slightly improved patient is on empiric antibiotics. 08/27/2020; blood pressure still uncontrolled added nifedipine, increased hydralazine dose, on empiric antibiotics for UTI Follow cultures, adjust antibiotics, ID consult if needed I discussed with patient's daughter Ms. Pebbles Pinto today Disposition; discharge back to assisted living when medically stable History Interval history: Nurse reports that patient is confused and is pulling out IVs and at the tubes Blood pressures are uncontrolled, will use mittens as needed Elderly male patient confused and agitated, afebrile Vital signs noted Hospitalist Physical - Constitutional Vitals: Temp Pulse Resp BP Pulse Ox 97.7 F 103 H 18 177/104 94 08/27/20 04:18 08/27/20 06:50 08/27/20 04:18 08/27/20 06:50 08/27/20 04:18 General appearance: Present: no acute distress, well-nourished, other (Agitated and confused) - EENT Eyes: Present: PERRL, EOM intact - Neck Neck: Present: supple, normal ROM - Respiratory Respiratory effort: normal Respiratory: bilateral: diminished, negative: rales, rhonchi, wheezing - Cardiovascular Rhythm: regular Heart Sounds: Present: S1 & S2 - Extremities Extremities: no ischemia, No edema - Abdominal General gastrointestinal: soft, non-tender, non-distended, normal bowel sounds - Integumentary Integumentary: Present: clear, warm - Psychiatric Psychiatric: agitated, other (Confused at times) - Neurologic Neurologic: moves all extremities HEART Score - HEART Score Troponin: Troponin T < 0.010 ng/mL (0.00-0.029) 08/25/20 20:31 Results - Labs CBC & Chem 7: 08/27/20 07:29 08/27/20 07:29 Labs: Laboratory Last Values WBC 16.2 K/mm3 (4.5-11.0) H 08/26/20 18:47 RBC 4.53 M/mm3 (3.65-5.03) 08/26/20 18:47 Hgb 13.7 gm/dl (11.8-15.2) 08/26/20 18:47 Hct 39.7 % (35.5-45.6) 08/26/20 18:47 MCV 88 fl (84-94) 08/26/20 18:47 MCH 30 pg (28-32) 08/26/20 18:47 MCHC 35 % (32-34) H 08/26/20 18:47 RDW 16.1 % (13.2-15.2) H 08/26/20 18:47 Plt Count 276 K/mm3 (140-440) 08/26/20 18:47 Lymph % (Auto) 9.5 % (13.4-35.0) L 08/26/20 18:47 [place] % (Auto) 8.7 % (0.0-7.3) H 08/26/20 18:47 Eos % (Auto) 0.3 % (0.0-4.3) 08/26/20 18:47 Baso % (Auto) 0.4 % (0.0-1.8) 08/26/20 18:47 Lymph # (Auto) 1.5 K/mm3 (1.2-5.4) 08/26/20 18:47 [place] # (Auto) 1.4 K/mm3 (0.0-0.8) H 08/26/20 18:47 Eos # (Auto) 0.1 K/mm3 (0.0-0.4) 08/26/20 18:47 Baso # (Auto) 0.1 K/mm3 (0.0-0.1) 08/26/20 18:47 Seg Neutrophils % 81.1 % (40.0-70.0) H 08/26/20 18:47 Seg Neutrophils # 13.1 K/mm3 (1.8-7.7) H 08/26/20 18:47 PT 14.1 Sec. (12.2-14.9) 08/25/20 18:12 INR 1.03 (0.87-1.13) 08/25/20 18:12 APTT 32.5 Sec. (24.2-36.6) 08/25/20 18:12 Sodium 133 mmol/L (137-145) L 08/26/20 18:47 Potassium 3.8 mmol/L (3.6-5.0) 08/26/20 18:47 Chloride 96.8 mmol/L (98-107) L 08/26/20 18:47 Carbon Dioxide 18 mmol/L (22-30) L 08/26/20 18:47 Anion Gap 22 mmol/L 08/26/20 18:47 BUN 7 mg/dL (9-20) L 08/26/20 18:47 Creatinine 0.6 mg/dL (0.8-1.3) L 08/26/20 18:47 Estimated GFR > 60 ml/min 08/26/20 18:47 BUN/Creatinine Ratio 12 % 08/26/20 18:47 Glucose 112 mg/dL (75-100) H 08/26/20 18:47 Lactic Acid 1.90 mmol/L (0.7-2.0) 08/25/20 18:12 Calcium 9.5 mg/dL (8.4-10.2) 08/26/20 18:47 Magnesium 2.10 mg/dL (1.7-2.3) 08/25/20 18:12 Total Bilirubin 0.50 mg/dL (0.1-1.2) 08/25/20 18:12 AST 20 units/L (5-40) 08/25/20 18:12 ALT 10 units/L (7-56) 08/25/20 18:12 Alkaline Phosphatase 138 units/L (35-129) H 08/25/20 18:12 Total Creatine Kinase 163 units/L (55-170) 08/25/20 18:12 Troponin T < 0.010 ng/mL (0.00-0.029) 08/25/20 20:31 Total Protein 7.9 g/dL (6.3-8.2) 08/25/20 18:12 Albumin 4.7 g/dL (3.9-5) 08/25/20 18:12 Albumin/Globulin Ratio 1.5 % 08/25/20 18:12 TSH 3.880 mlU/mL (0.270-4.200) 08/25/20 18:12 Urine Color Yellow (Yellow) 08/25/20 Unknown Urine Turbidity Cloudy (Clear) 08/25/20 Unknown Urine pH 5.0 (5.0-7.0) 08/25/20 Unknown Ur Specific [place] 1.019 (1.003-1.030) 08/25/20 Unknown Urine Protein 100 mg/dl mg/dL (Negative) 08/25/20 Unknown Urine Glucose (UA) Neg mg/dL (Negative) 08/25/20 Unknown Urine Ketones Tr mg/dL (Negative) 08/25/20 Unknown Urine Blood Lg (Negative) 08/25/20 Unknown Urine Nitrite Neg (Negative) 08/25/20 Unknown Urine Bilirubin Neg (Negative) 08/25/20 Unknown Urine Urobilinogen < 2.0 mg/dL (<2.0) 08/25/20 Unknown Ur Leukocyte Esterase Mod (Negative) 08/25/20 Unknown Urine WBC (Auto) 182.0 /HPF (0.0-6.0) H 08/25/20 Unknown Urine RBC (Auto) > 182.0 /HPF (0.0-6.0) 08/25/20 Unknown U Epithel Cells (Auto) < 1.0 /HPF (0-13.0) 08/25/20 Unknown Urine Yeast (Budding) 1+ /HPF 08/25/20 Unknown Microbiology: Microbiology 08/25/20 18:25 Peripheral/Venous Blood Culture - Preliminary NO GROWTH AFTER 24 HOURS 08/25/20 18:12 Peripheral/Venous Blood Culture - Preliminary NO GROWTH AFTER 24 HOURS Mackey/IV: Voiding Method Diaper Active Medications - Current Medications Current Medications: Generic Name Dose Route Start Last Admin Trade Name Freq PRN Reason Stop Dose Admin Acetaminophen 650 mg 08/25/20 22:44 Acetaminophen 325 Mg Tab PO Q4H PRN Pain MILD(1-3)/Fever >100.5/PULLIAM Hydralazine HCl 10 mg 08/26/20 09:00 08/27/20 06:50 Hydralazine 20 Mg/1 Ml Inj IV 10 mg Q4H PRN Administration Blood Pressure Hydralazine HCl 50 mg 08/27/20 07:55 Hydralazine 25 Mg Tab PO Q8HR [facility] Ceftriaxone Sodium 1 gm in 50 mls @ 100 mls/hr 08/26/20 22:00 08/27/20 02:19 Rocephin/Ns 1 Gm/50 Ml IV 09/01/20 22:29 Infused Q24H [facility] Infusion Protocol Metoprolol Tartrate 25 mg 08/26/20 10:00 08/26/20 22:14 Metoprolol Tartrate 25 Mg Tab PO 25 mg BID ML Administration Morphine Sulfate 2 mg 08/25/20 23:02 Morphine 4 Mg/1 Ml Inj IV Q4H PRN Pain , Severe (7-10) Naloxone HCl 0.1 mg 08/25/20 23:02 Naloxone 0.4 Mg/1 Ml Inj IV Q2MIN PRN Res Rate </= 8 or 02 SAT < 92% Nifedipine 30 mg 08/27/20 10:00 Nifedipine Xl 30 Mg Tab PO Q12HR ML Ondansetron HCl 4 mg 08/25/20 23:05 Ondansetron 4 Mg/2 Ml Inj IV Q6H PRN Nausea And Vomiting Oxycodone/Acetaminophen 1 tab 08/25/20 23:02 Oxycodone /Acetaminophen 5-325mg Tab PO Q6H PRN Pain, Moderate (4-6) Sodium Chloride 10 ml 08/26/20 10:00 08/26/20 22:15 Sodium Chloride 0.9% 10 Ml Flush Syringe IV 10 ml BID ML Administration Sodium Chloride 10 ml 08/25/20 22:44 Sodium Chloride 0.9% 10 Ml Flush Syringe IV PRN PRN LINE FLUSH
[2020-08-27 08:12] LABS: Hematocrit 39.8 % (35.5-45.6); Hemoglobin 13.6 gm/dl (11.8-15.2); Mean Corpuscular HGB Conc 34 % (32-34); Mean Corpuscular Volume 87 fl (84-94); Platelet Count 276 K/mm3 (140-440); Red Cell Distribution Width 15.6 % (13.2-15.2)
[2020-08-27 08:17] LABS: BUN/Creatinine Ratio 10; Blood Urea Nitrogen 8 mg/dL (9-20); Calcium 9.4 mg/dL (8.4-10.2); Hemolysis Index 0
--- NOTE | 2020-08-27 08:18 | Event Note ---
Date: 08/27/20 I called patient's daughter Ms. Pebbles Pinto at [phone] and discussed in detail patient's condition, tests and reports, diagnosis And treatment plan , she had numerous questions answered all of them encouraged her to call back if she has any new questions or concerns. I informed patient's nurse about my conversation with patient's daughter this morning
[2020-08-27] MEDS: hydrALAZINE 25 MG TAB PO SCH ×3 (09:40→21:44)
[2020-08-27] MEDS: METOPROLOL TARTRATE 25 MG TAB PO SCH ×2 (09:41→21:43)
[2020-08-27] MEDS: NIFEdipine XL 30 MG TAB PO SCH ×2 (09:41→21:45)
--- NOTE | 2020-08-27 10:28 | Electrocardiograph Report ---
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
[2020-08-27 10:29] LABS: Promyelocytes # (Manual) 47.1 K/mm3; Total Cells Counted 100
[2020-08-27 10:32] LABS: Burr Cells 1+; Target Cells Few
[2020-08-27 10:33] LABS: Ovalocytes Few; Platelet Estimate Consistent w Auto
[2020-08-27] MEDS: ACETAMINOPHEN 325 MG TAB PO PRN (12:00)
[2020-08-27] MEDS: cefTRIAXone/NS 1 GM/50 ML 1 GM/50 ML BAG IV SCH (21:46)
[2020-08-28 05:58] LABS: Basophils # (Auto) 0.1 K/mm3 (0.0-0.1); Basophils % (Auto) 0.7 % (0.0-1.8); Eosinophils # (Auto) 0.3 K/mm3 (0.0-0.4); Eosinophils % (Auto) 2.4 % (0.0-4.3); Hematocrit 41.7 % (35.5-45.6); Hemoglobin 13.3 gm/dl (11.8-15.2); Lymphocytes # (Auto) 1.9 K/mm3 (1.2-5.4); Lymphocytes % (Auto) 16.4 % (13.4-35.0); Mean Corpuscular HGB Conc 32 % (32-34); Mean Corpuscular Volume 88 fl (84-94); Monocytes # (Auto) 1.2 K/mm3 (0.0-0.8); Monocytes % (Auto) 10.2 % (0.0-7.3); Platelet Count 268 K/mm3 (140-440); Red Blood Count 4.73 M/mm3 (3.65-5.03); Red Cell Distribution Width 16.1 % (13.2-15.2)
[2020-08-28 06:16] LABS: BUN/Creatinine Ratio 16; Blood Urea Nitrogen 16 mg/dL (9-20); Calcium 9.4 mg/dL (8.4-10.2); Hemolysis Index 26
[2020-08-28] MEDS: hydrALAZINE 25 MG TAB PO SCH ×3 (06:21→22:28)
[2020-08-28] MEDS: METOPROLOL TARTRATE 25 MG TAB PO SCH ×2 (10:29→22:28)
[2020-08-28] MEDS: NIFEdipine XL 30 MG TAB PO SCH ×2 (10:32→22:28)
[2020-08-28] MEDS: ACETAMINOPHEN 325 MG TAB PO PRN (10:34)
--- NOTE | 2020-08-28 13:35 | Progress Note ---
Assessment and Plan Assessment and Plan --Acute toxic metabolic encephalopathy Multifactorial, dementia, sepsis due to UTI, hypertensive urgency, hyponatremia Treat the underlying cause, neurochecks Empiric antibiotics, follow cultures, supportive care Improving --Hypertensive urgency; present on admission;220/120 Moderate control, blood pressure this morning is 177/104 Add metoprolol 25 mg twice a day, increase hydralazine 50 mg 3 times a day And nifedipine 30 mg twice a day and continue as needed IV hydralazine for blood pressure more than 150/90 Partly due to agitation, as needed Haldol for agitation Better controlled --Sepsis secondary to UTI Leukocytosis 13.8, Tachycardia 110 AMS, UA consistent with UTI Continue empiric antibiotics, follow cultures --Leukocytosis; Secondary to UTI, continue empiric antibiotics , trend WBC --Mild hyponatremia; Closely monitor electrolytes IV normal saline as needed --DVT and GI prophylaxis Subcu heparin and oral pepcid --Full CODE STATUS We will closely monitor the patient and adjust the management as needed Plan of care reviewed with the patient, patient's nurse and the case management Discussed in detail patient's condition, tests and reports, diagnosis at bedside And treatment plan , she had numerous questions answered all of them encouraged her to call back if she has any new questions or concerns. I informed patient's nurse about my conversation with patient's daughter this morning Subjective Date of service: 08/28/20 Principal diagnosis: Acute Encephalopathy Interval history: Brief history and daily hospital course: 85-year-old male patient from assisted/assisted living with altered level of consciousness and hypertensive urgency, work-up is consistent with urinary tract infection, electrolyte imbalance. Blood pressure slightly improved patient is on empiric antibiotics. 08/27/2020; blood pressure still uncontrolled added nifedipine, increased hydralazine dose, on empiric antibiotics for UTI Follow cultures, adjust antibiotics, ID consult if needed I discussed with patient's daughter Ms. Pebbles Pinto today Disposition; discharge back to assisted living when medically stable 08/28 More alert Daughter at bedside Objective - Constitutional Vitals: Vital Signs - 12hr 08/28/20 08/28/20 08/28/20 04:28 05:00 10:29 Temperature 98.4 F Pulse Rate 98 H 101 H Respiratory 20 Rate Blood Pressure 137/82 142/86 Blood Pressure [Left] O2 Sat by Pulse 93 Oximetry 08/28/20 11:00 Temperature 97.9 F Pulse Rate 109 H Respiratory Rate Blood Pressure Blood Pressure 134/90 [Left] O2 Sat by Pulse 94 Oximetry General appearance: Present: no acute distress, well-nourished - EENT Eyes: PERRL, EOM intact ENT: hearing intact, clear oral mucosa Ears: bilateral: normal - Neck Neck: supple, normal ROM - Respiratory Respiratory effort: normal Respiratory: bilateral: CTA - Breasts Breasts: normal - Cardiovascular Heart rate: 78 Rhythm: regular Heart Sounds: Present: S1 & S2. Absent: gallop, rub Extremities: pulses intact, No edema, normal color, Full ROM - Gastrointestinal General gastrointestinal: Present: soft, non-tender, non-distended, normal bowel sounds - Genitourinary Male genitourinary: normal - Integumentary Integumentary: clear, warm, dry - Musculoskeletal Musculoskeletal: 1, strength equal bilaterally - Neurologic Neurologic: moves all extremities - Psychiatric Psychiatric: cooperative - Allied health notes Allied health notes reviewed: nursing, case management - Labs CBC & Chem 7: 08/28/20 05:20 08/28/20 05:20 Labs: Abnormal lab results 08/28/20 08/28/20 Range/Units 05:20 05:20 WBC 11.4 H (4.5-11.0) K/mm3 RDW 16.1 H (13.2-15.2) % [place] % (Auto) 10.2 H (0.0-7.3) % [place] # (Auto) 1.2 H (0.0-0.8) K/mm3 Seg Neutrophils % 70.3 H (40.0-70.0) % Seg Neutrophils # 8.0 H (1.8-7.7) K/mm3 Carbon Dioxide 20 L (22-30) mmol/L HEART Score - HEART Score Troponin: Troponin T < 0.010 ng/mL (0.00-0.029) 08/25/20 20:31
[2020-08-28] MEDS: cefTRIAXone/NS 1 GM/50 ML 1 GM/50 ML BAG IV SCH (22:31)
[2020-08-29] MEDS: hydrALAZINE 25 MG TAB PO SCH ×3 (06:08→22:19)
[2020-08-29] MEDS: METOPROLOL TARTRATE 25 MG TAB PO SCH ×2 (10:46→22:19)
[2020-08-29] MEDS: NIFEdipine XL 30 MG TAB PO SCH ×2 (10:46→22:20)
--- NOTE | 2020-08-29 14:56 | Progress Note ---
Assessment and Plan Assessment and Plan --Acute toxic metabolic encephalopathy Multifactorial, dementia, sepsis due to UTI, hypertensive urgency, hyponatremia Treat the underlying cause, neurochecks Empiric antibiotics, follow cultures, supportive care Improving --Hypertensive urgency; present on admission;220/120 Moderate control, blood pressure this morning is 177/104 Add metoprolol 25 mg twice a day, increase hydralazine 50 mg 3 times a day And nifedipine 30 mg twice a day and continue as needed IV hydralazine for blood pressure more than 150/90 Partly due to agitation, as needed Haldol for agitation Better controlled --Sepsis secondary to UTI Leukocytosis 13.8, Tachycardia 110 AMS, UA consistent with UTI Continue empiric antibiotics, follow cultures --Leukocytosis; Secondary to UTI, continue empiric antibiotics , trend WBC --Mild hyponatremia; Closely monitor electrolytes IV normal saline as needed --DVT and GI prophylaxis Subcu heparin and oral pepcid --Full CODE STATUS We will closely monitor the patient and adjust the management as needed Plan of care reviewed with the patient, patient's nurse and the case management Discussed in detail patient's condition, tests and reports, diagnosis at bedside with daughter Subjective Date of service: 08/29/20 Principal diagnosis: Acute Metabolic Encehalopathy Interval history: Brief history and daily hospital course: 85-year-old male patient from half-way/assisted living with altered level of consciousness and hypertensive urgency, work-up is consistent with urinary tract infection, electrolyte imbalance. Blood pressure slightly improved patient is on empiric antibiotics. 08/27/2020; blood pressure still uncontrolled added nifedipine, increased hydralazine dose, on empiric antibiotics for UTI Follow cultures, adjust antibiotics, ID consult if needed I discussed with patient's daughter Ms. Pebbles Pinto today Disposition; discharge back to assisted living when medically stable 08/28 More alert Daughter at bedside 08/29 More alert Daughter at bedside Objective - Constitutional Vitals: Vital Signs - 12hr 08/29/20 08/29/20 05:10 06:08 Temperature 98.2 F Pulse Rate 96 H 96 H Respiratory 20 Rate Blood Pressure 157/95 157/95 O2 Sat by Pulse 97 Oximetry General appearance: Present: no acute distress, well-nourished - EENT Eyes: PERRL, EOM intact ENT: hearing intact, clear oral mucosa Ears: bilateral: normal - Neck Neck: supple, normal ROM - Respiratory Respiratory effort: normal Respiratory: bilateral: CTA - Breasts Breasts: normal - Cardiovascular Heart rate: 78 Rhythm: regular Heart Sounds: Present: S1 & S2. Absent: gallop, rub Extremities: pulses intact, No edema, normal color, Full ROM - Gastrointestinal General gastrointestinal: Present: soft, non-tender, non-distended, normal bowel sounds - Genitourinary Male genitourinary: normal - Integumentary Integumentary: clear, warm, dry - Musculoskeletal Musculoskeletal: generalized weakness - Neurologic Neurologic: moves all extremities - Psychiatric Psychiatric: cooperative, depressed - Labs CBC & Chem 7: 08/28/20 05:20 08/28/20 05:20 HEART Score - HEART Score Troponin: Troponin T < 0.010 ng/mL (0.00-0.029) 08/25/20 20:31
[2020-08-29] MEDS: cefTRIAXone/NS 1 GM/50 ML 1 GM/50 ML BAG IV SCH (22:20)
[2020-08-30] MEDS: hydrALAZINE 25 MG TAB PO SCH ×3 (05:29→21:49)
[2020-08-30] MEDS: NIFEdipine XL 30 MG TAB PO SCH ×2 (09:56→21:50)
[2020-08-30] MEDS: METOPROLOL TARTRATE 25 MG TAB PO SCH ×2 (09:56→21:49)
[2020-08-30] MEDS: cefTRIAXone/NS 1 GM/50 ML 1 GM/50 ML BAG IV SCH (21:50)
--- NOTE | 2020-08-31 00:31 | Progress Note ---
Assessment and Plan Assessment and Plan --Acute toxic metabolic encephalopathy Multifactorial, dementia, sepsis due to UTI, hypertensive urgency, hyponatremia Treat the underlying cause, neurochecks Empiric antibiotics, follow cultures, supportive care Improved at baseline --Hypertensive urgency; present on admission;220/120 Moderate control, blood pressure this morning is 177/104 Add metoprolol 25 mg twice a day, increase hydralazine 50 mg 3 times a day And nifedipine 30 mg twice a day and continue as needed IV hydralazine for blood pressure more than 150/90 Partly due to agitation, as needed Haldol for agitation Better controlled --Sepsis secondary to UTI Leukocytosis 13.8, Tachycardia 110 AMS, UA consistent with UTI Continue empiric antibiotics, follow cultures --Leukocytosis; Secondary to UTI, continue empiric antibiotics , trend WBC --Mild hyponatremia; Closely monitor electrolytes IV normal saline as needed --DVT and GI prophylaxis Subcu heparin and oral pepcid --Full CODE STATUS We will closely monitor the patient and adjust the management as needed Plan of care reviewed with the patient, patient's nurse and the case management Transfer to [facility] tomorrow [facility] Subjective Date of service: 08/30/20 Principal diagnosis: Acute Metabolic Encehalopathy Interval history: Brief history and daily hospital course: 85-year-old male patient from [facility]pc/assisted living with altered level of consciousness and hypertensive urgency, work-up is consistent with urinary tract infection, electrolyte imbalance. Blood pressure slightly improved patient is on empiric antibiotics. 08/27/2020; blood pressure still uncontrolled added nifedipine, increased hydralazine dose, on empiric antibiotics for UTI Follow cultures, adjust antibiotics, ID consult if needed I discussed with patient's daughter Ms. Pebbles Pinto today Disposition; discharge back to assisted living when medically stable 08/28 More alert Daughter at bedside 08/29 More alert Daughter at bedside 08/30/20 Covid test positive Transfer to Assisted living facility postponed to tomorrow b/c of positive covid test at the request of the facility They are willing to accept transfer tomorrow so that they can quarantine the patient. patient is asymptomatic and on room air. Objective - Constitutional Vitals: Vital Signs - 12hr 08/30/20 08/30/20 08/30/20 16:27 21:22 21:49 Temperature 97.5 F L 97.9 F Pulse Rate 97 H 105 H 105 H Respiratory 19 20 Rate Blood Pressure 136/87 139/84 137/84 O2 Sat by Pulse 98 97 Oximetry General appearance: Present: no acute distress, well-nourished - EENT Eyes: PERRL, EOM intact ENT: hearing intact, clear oral mucosa Ears: bilateral: normal - Neck Neck: supple, normal ROM - Respiratory Respiratory effort: normal Respiratory: bilateral: CTA - Breasts Breasts: normal - Cardiovascular Heart rate: 78 Rhythm: regular Heart Sounds: Present: S1 & S2. Absent: gallop, rub Extremities: pulses intact, No edema, normal color, Full ROM - Gastrointestinal General gastrointestinal: Present: soft, non-tender, non-distended, normal bowel sounds - Genitourinary Male genitourinary: normal - Integumentary Integumentary: clear, warm, dry - Musculoskeletal Musculoskeletal: 1, strength equal bilaterally - Neurologic Neurologic: moves all extremities - Psychiatric Psychiatric: cooperative, depressed - Labs CBC & Chem 7: 08/28/20 05:20 08/28/20 05:20 Labs: Abnormal lab results 08/30/20 Range/Units Unknown Coronavirus (PCR) Positive A (Negative) HEART Score - HEART Score Troponin: Troponin T < 0.010 ng/mL (0.00-0.029) 08/25/20 20:31
[2020-08-31] MEDS: hydrALAZINE 25 MG TAB PO SCH ×2 (05:56→13:39)
--- NOTE | 2020-08-31 08:05 | Progress Note ---
Assessment and Plan Assessment and plan: --COVID-19 test positive Contact and droplet isolation Monitor inflammatory markers ID consultation, Oxygen evaluation Home O2 evaluation prior to discharge We will get chest x-ray to evaluate for pneumonia --Acute toxic metabolic encephalopathy Multifactorial, dementia, sepsis due to UTI, hypertensive urgency, hyponatremia, Covid infection Treat the underlying cause, neurochecks Empiric antibiotics, cultures negative to date ID consulted for Covid --Hypertensive urgency; present on admission;220/120 Blood pressures well controlled today We will continue current antihypertensives As needed hydralazine --Sepsis secondary to UTI Leukocytosis 13.8, Tachycardia 110 AMS, UA consistent with UTI Continue empiric antibiotics for total 7 days, cultures negative to date --Leukocytosis; Secondary to UTI, trending down Continue current antibiotics --Mild hyponatremia; Resolved sodium levels today within normal range Closely monitor electrolytes --DVT and GI prophylaxis Subcu heparin and oral pepcid --Full CODE STATUS We will closely monitor the patient and adjust the management as needed Plan of care reviewed with the patient, patient's nurse and the case management Transfer to [facility] tomorrow [facility] Date of service: 08/30/20 Principal diagnosis: Acute Metabolic Encehalopathy Interval history: Brief history and daily hospital course: 85-year-old male patient from long term/assisted living with altered level of consciousness and hypertensive urgency, work-up is consistent with urinary tract infection, electrolyte imbalance. Blood pressure slightly improved patient is on empiric antibiotics. 08/27/2020; blood pressure still uncontrolled added nifedipine, increased hydralazine dose, on empiric antibiotics for UTI Follow cultures, adjust antibiotics, ID consult if needed I discussed with patient's daughter Ms. Pebbles Pinto today Disposition; discharge back to assisted living when medically stable 08/28 More alert Daughter at bedside 08/29 More alert Daughter at bedside Resumed service today: 08/31/2020; patient's Covid test is + 08/30/2020 Place isolation, inflammatory markers, ID consult Oxygen evaluation, chest x-ray to evaluate for pneumonia Hospitalist Physical - Constitutional Vitals: Temp Pulse Resp BP Pulse Ox 98.9 F 94 H 16 140/83 94 08/31/20 04:42 08/31/20 05:56 08/31/20 04:42 08/31/20 05:56 08/31/20 04:42 General appearance: Present: no acute distress, well-nourished HEART Score - HEART Score Troponin: Troponin T < 0.010 ng/mL (0.00-0.029) 08/25/20 20:31 Results - Labs CBC & Chem 7: 08/28/20 05:20 08/28/20 05:20 Labs: Laboratory Last Values WBC 11.4 K/mm3 (4.5-11.0) H 08/28/20 05:20 RBC 4.73 M/mm3 (3.65-5.03) 08/28/20 05:20 Hgb 13.3 gm/dl (11.8-15.2) 08/28/20 05:20 Hct 41.7 % (35.5-45.6) 08/28/20 05:20 MCV 88 fl (84-94) 08/28/20 05:20 MCH 28 pg (28-32) 08/28/20 05:20 MCHC 32 % (32-34) 08/28/20 05:20 RDW 16.1 % (13.2-15.2) H 08/28/20 05:20 Plt Count 268 K/mm3 (140-440) 08/28/20 05:20 Lymph % (Auto) 16.4 % (13.4-35.0) 08/28/20 05:20 Fergus % (Auto) 10.2 % (0.0-7.3) H 08/28/20 05:20 Eos % (Auto) 2.4 % (0.0-4.3) 08/28/20 05:20 Baso % (Auto) 0.7 % (0.0-1.8) 08/28/20 05:20 Lymph # (Auto) 1.9 K/mm3 (1.2-5.4) 08/28/20 05:20 Fergus # (Auto) 1.2 K/mm3 (0.0-0.8) H 08/28/20 05:20 Eos # (Auto) 0.3 K/mm3 (0.0-0.4) 08/28/20 05:20 Baso # (Auto) 0.1 K/mm3 (0.0-0.1) 08/28/20 05:20 Add Manual Diff Complete 08/27/20 07:29 Total Counted 100 08/27/20 07:29 Seg Neutrophils % 70.3 % (40.0-70.0) H 08/28/20 05:20 Seg Neuts % (Manual) 80.0 % (40.0-70.0) H 08/27/20 07:29 Lymphocytes % (Manual) 14.0 % (13.4-35.0) 08/27/20 07:29 Monocytes % (Manual) 4.0 % (0.0-7.3) 08/27/20 07:29 Eosinophils % (Manual) 2.0 % (0.0-4.3) 08/27/20 07:29 Nucleated RBC % Not Reportable 08/27/20 07:29 Seg Neutrophils # 8.0 K/mm3 (1.8-7.7) H 08/28/20 05:20 Seg Neutrophils # Man 11.4 K/mm3 (1.8-7.7) H 08/27/20 07:29 Band Neutrophils # 0.0 K/mm3 08/27/20 07:29 Lymphocytes # (Manual) 2.0 K/mm3 (1.2-5.4) 08/27/20 07:29 Abs React Lymphs (Man) 0.0 K/mm3 08/27/20 07:29 Monocytes # (Manual) 0.6 K/mm3 (0.0-0.8) 08/27/20 07:29 Eosinophils # (Manual) 0.3 K/mm3 (0.0-0.4) 08/27/20 07:29 Basophils # (Manual) 0.0 K/mm3 (0.0-0.1) 08/27/20 07:29 Metamyelocytes # 0.0 K/mm3 08/27/20 07:29 Myelocytes # 0.0 K/mm3 08/27/20 07:29 Promyelocytes # 47.1 K/mm3 08/27/20 07:29 Blast Cells # 0.0 K/mm3 08/27/20 07:29 WBC Morphology Not Reportable 08/27/20 07:29 Hypersegmented Neuts Not Reportable 08/27/20 07:29 Hyposegmented Neuts Not Reportable 08/27/20 07:29 Hypogranular Neuts Not Reportable 08/27/20 07:29 Smudge Cells Not Reportable 08/27/20 07:29 Toxic Granulation Not Reportable 08/27/20 07:29 Toxic Vacuolation Not Reportable 08/27/20 07:29 Dohle Bodies Not Reportable 08/27/20 07:29 Pelger-Huet Anomaly Not Reportable 08/27/20 07:29 Fauzia Rods Not Reportable 08/27/20 07:29 Platelet Estimate Consistent w auto 08/27/20 07:29 Clumped Platelets Not Reportable 08/27/20 07:29 Plt Clumps, EDTA Not Reportable 08/27/20 07:29 Large Platelets Not Reportable 08/27/20 07:29 Giant Platelets Not Reportable 08/27/20 07:29 Platelet Satelliting Not Reportable 08/27/20 07:29 Plt Morphology Comment Not Reportable 08/27/20 07:29 RBC Morphology Not Reportable 08/27/20 07:29 Dimorphic RBCs Not Reportable 08/27/20 07:29 Polychromasia Not Reportable 08/27/20 07:29 Hypochromasia Not Reportable 08/27/20 07:29 Poikilocytosis Not Reportable 08/27/20 07:29 Anisocytosis Not Reportable 08/27/20 07:29 Microcytosis Not Reportable 08/27/20 07:29 Macrocytosis Not Reportable 08/27/20 07:29 Spherocytes Not Reportable 08/27/20 07:29 Pappenheimer Bodies Not Reportable 08/27/20 07:29 Sickle Cells Not Reportable 08/27/20 07:29 Target Cells Few 08/27/20 07:29 Tear Drop Cells Not Reportable 08/27/20 07:29 Ovalocytes Few 08/27/20 07:29 Helmet Cells Not Reportable 08/27/20 07:29 Hall-Leadwood Bodies Not Reportable 08/27/20 07:29 Martelle Rings Not Reportable 08/27/20 07:29 Shala Cells 1+ 08/27/20 07:29 Bite Cells Not Reportable 08/27/20 07:29 Crenated Cell Not Reportable 08/27/20 07:29 Elliptocytes Not Reportable 08/27/20 07:29 Acanthocytes (Spur) Rare 08/27/20 07:29 Rouleaux Not Reportable 08/27/20 07:29 Hemoglobin C Crystals Not Reportable 08/27/20 07:29 Schistocytes Not Reportable 08/27/20 07:29 Malaria parasites Not Reportable 08/27/20 07:29 Samuel Bodies Not Reportable 08/27/20 07:29 Hem Pathologist Commnt No 08/27/20 07:29 PT 14.1 Sec. (12.2-14.9) 08/25/20 18:12 INR 1.03 (0.87-1.13) 08/25/20 18:12 APTT 32.5 Sec. (24.2-36.6) 08/25/20 18:12 Sodium 139 mmol/L (137-145) 08/28/20 05:20 Potassium 3.7 mmol/L (3.6-5.0) 08/28/20 05:20 Chloride 101.1 mmol/L (98-107) 08/28/20 05:20 Carbon Dioxide 20 mmol/L (22-30) L 08/28/20 05:20 Anion Gap 22 mmol/L 08/28/20 05:20 BUN 16 mg/dL (9-20) 08/28/20 05:20 Creatinine 1.0 mg/dL (0.8-1.3) 08/28/20 05:20 Estimated GFR > 60 ml/min 08/28/20 05:20 BUN/Creatinine Ratio 16 % 08/28/20 05:20 Glucose 92 mg/dL (75-100) 08/28/20 05:20 POC Glucose 78 mg/dL (70-105) 08/29/20 07:54 Lactic Acid 1.90 mmol/L (0.7-2.0) 08/25/20 18:12 Calcium 9.4 mg/dL (8.4-10.2) 08/28/20 05:20 Magnesium 1.80 mg/dL (1.7-2.3) 08/27/20 07:29 Total Bilirubin 0.50 mg/dL (0.1-1.2) 08/25/20 18:12 AST 20 units/L (5-40) 08/25/20 18:12 ALT 10 units/L (7-56) 08/25/20 18:12 Alkaline Phosphatase 138 units/L (35-129) H 08/25/20 18:12 Total Creatine Kinase 163 units/L (55-170) 08/25/20 18:12 Troponin T < 0.010 ng/mL (0.00-0.029) 08/25/20 20:31 Total Protein 7.9 g/dL (6.3-8.2) 08/25/20 18:12 Albumin 4.7 g/dL (3.9-5) 08/25/20 18:12 Albumin/Globulin Ratio 1.5 % 08/25/20 18:12 TSH 3.880 mlU/mL (0.270-4.200) 08/25/20 18:12 Urine Color Yellow (Yellow) 08/25/20 Unknown Urine Turbidity Cloudy (Clear) 08/25/20 Unknown Urine pH 5.0 (5.0-7.0) 08/25/20 Unknown Ur Specific Mutual 1.019 (1.003-1.030) 08/25/20 Unknown Urine Protein 100 mg/dl mg/dL (Negative) 08/25/20 Unknown Urine Glucose (UA) Neg mg/dL (Negative) 08/25/20 Unknown Urine Ketones Tr mg/dL (Negative) 08/25/20 Unknown Urine Blood Lg (Negative) 08/25/20 Unknown Urine Nitrite Neg (Negative) 08/25/20 Unknown Urine Bilirubin Neg (Negative) 08/25/20 Unknown Urine Urobilinogen < 2.0 mg/dL (<2.0) 08/25/20 Unknown Ur Leukocyte Esterase Mod (Negative) 08/25/20 Unknown Urine WBC (Auto) 182.0 /HPF (0.0-6.0) H 08/25/20 Unknown Urine RBC (Auto) > 182.0 /HPF (0.0-6.0) 08/25/20 Unknown U Epithel Cells (Auto) < 1.0 /HPF (0-13.0) 08/25/20 Unknown Urine Yeast (Budding) 1+ /HPF 08/25/20 Unknown Coronavirus (PCR) Positive (Negative) A 08/30/20 Unknown Microbiology: Microbiology 08/25/20 18:25 Peripheral/Venous Blood Culture - Final NO GROWTH AFTER 5 DAYS 08/25/20 18:12 Peripheral/Venous Blood Culture - Final NO GROWTH AFTER 5 DAYS Mackey/IV: Voiding Method Incontinent Active Medications - Current Medications Current Medications: Generic Name Dose Route Start Last Admin Trade Name Freq PRN Reason Stop Dose Admin Acetaminophen 650 mg 08/25/20 22:44 08/28/20 10:34 Acetaminophen 325 Mg Tab PO 650 mg Q4H PRN Administration Pain MILD(1-3)/Fever >100.5/PULLIAM Hydralazine HCl 10 mg 08/26/20 09:00 08/27/20 06:50 Hydralazine 20 Mg/1 Ml Inj IV 10 mg Q4H PRN Administration Blood Pressure Hydralazine HCl 50 mg 08/27/20 09:00 08/31/20 05:56 Hydralazine 25 Mg Tab PO 50 mg Q8HR ML Administration Ceftriaxone Sodium 1 gm in 50 mls @ 100 mls/hr 08/26/20 22:00 08/30/20 21:50 Rocephin/Ns 1 Gm/50 Ml IV 09/01/20 22:29 100 mls/hr Q24H ML Administration Protocol Metoprolol Tartrate 25 mg 08/26/20 10:00 08/30/20 21:49 Metoprolol Tartrate 25 Mg Tab PO 25 mg BID ML Administration Morphine Sulfate 2 mg 08/25/20 23:02 Morphine 4 Mg/1 Ml Inj IV Q4H PRN Pain , Severe (7-10) Naloxone HCl 0.1 mg 08/25/20 23:02 Naloxone 0.4 Mg/1 Ml Inj IV Q2MIN PRN Res Rate </= 8 or 02 SAT < 92% Nifedipine 30 mg 08/27/20 10:00 08/30/20 21:50 Nifedipine Xl 30 Mg Tab PO 30 mg Q12HR ML Administration Ondansetron HCl 4 mg 08/25/20 23:05 Ondansetron 4 Mg/2 Ml Inj IV Q6H PRN Nausea And Vomiting Oxycodone/Acetaminophen 1 tab 08/25/20 23:02 Oxycodone /Acetaminophen 5-325mg Tab PO Q6H PRN Pain, Moderate (4-6) Sodium Chloride 10 ml 08/26/20 10:00 08/30/20 21:50 Sodium Chloride 0.9% 10 Ml Flush Syringe IV 10 ml BID ML Administration Sodium Chloride 10 ml 08/25/20 22:44 Sodium Chloride 0.9% 10 Ml Flush Syringe IV PRN PRN LINE FLUSH Nutrition/Malnutrition Assess - Dietary Evaluation Nutrition/Malnutrition Findings: Nutrition Notes Start: 08/27/20 12:27 Freq: Status: Active Protocol: Document 08/27/20 12:27 SAUL (Rec: 08/27/20 12:29 SAUL [id number]) Nutrition Notes 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 Bruce score 17. Pt reports eating well and no weight loss. Current % PO Good (75-100%) Nutrition Intervention Follow-Up By: 08/31/20 Additional Comments FU for stable intakes
--- NOTE | 2020-08-31 08:28 | Discharge Summary ---
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 Patient was initially evaluated noted to have urinary tract infection and hypertensive urgency as well as sepsis. Patient patient was admitted as PUI subsequently Rene PCR test was positive, appropriately managed per protocols, patient symptoms slowly but gradually improved, Patient's medications optimized, case management has made arrangements for him to return to assisted living facility when he is stable. Today patient is comfortable still confused back to his baseline, patient is being discharged back to assisted living facility today. Patient is hemodynamically and cl inically stable at discharge back to assisted living facility. Discharge diagnosis; --COVID-19 test positive Contact and droplet isolation Monitor inflammatory markers ID consultation, Oxygen evaluation Home O2 evaluation prior to discharge We will get chest x-ray to evaluate for pneumonia --Acute toxic metabolic encephalopathy Multifactorial, dementia, sepsis due to UTI, hypertensive urgency, hyponatremia, Covid infection Treat the underlying cause, neurochecks Empiric antibiotics, cultures negative to date ID consulted for Covid --Hypertensive urgency; present on admission;220/120 Blood pressures well controlled today We will continue current antihypertensives As needed hydralazine --Sepsis secondary to UTI Leukocytosis 13.8, Tachycardia 110 AMS, UA consistent with UTI Continue empiric antibiotics for total 7 days, cultures negative to date --Leukocytosis; Secondary to UTI, trending down Continue current antibiotics --Mild hyponatremia; Resolved sodium levels today within normal range Closely monitor electrolytes Stable at discharge back to assisted living facility Disposition: [id number] CERT Final Discharge Diagnosis (Prints w/discharge instructions): COVID-19 positive. Acute toxic metabolic encephalopathy. Hypertensive urgency improved. History of hypertension. Sepsis secondary to UTI. Urinary tract infection. Leukocytosis. Mild hyponatremia Time spent for discharge: 35 min Core Measure Documentation - Palliative Care Palliative Care/ Comfort Measures: Not Applicable - Core Measures Any of the following diagnoses?: none Exam - Constitutional Vitals: Temp Pulse Resp BP Pulse Ox 98.9 F 94 H 16 140/83 94 08/31/20 04:42 08/31/20 05:56 08/31/20 04:42 08/31/20 05:56 08/31/20 04:42 General appearance: Present: no acute distress, well-nourished - EENT Eyes: Present: PERRL, EOM intact - Neck Neck: Present: supple, normal ROM - Respiratory Respiratory effort: normal Respiratory: bilateral: diminished, negative: rales, rhonchi, wheezing - Cardiovascular Rhythm: regular Heart Sounds: Present: S1 & S2 - Extremities Extremities: no ischemia, No edema - Abdominal General gastrointestinal: Present: soft, non-tender, non-distended, normal bowel sounds - Integumentary Integumentary: Present: clear, warm - Musculoskeletal Musculoskeletal: generalized weakness - Psychiatric Psychiatric: other - Neurologic Neurologic: moves all extremities, other (Confused confused) Plan Activity: advance as tolerated, fall precautions Diet: other (Mechanical soft diet advance as tolerated) Additional Instructions: Covid positive patient, contact isolation, droplet precautions. Supplemental oxygen if O2 sats less than 90%. Ambulate as tolerated. Fall precautions. Aspiration precautions. If the patient has worsening symptoms contact MD or sent to the nearest emergency room as needed Follow up with: PRIMARY CARE, [Primary Care Provider] - 7 Days SAMIRA PEREZ MD [Staff Physician] - 14 Days Prescriptions: Hydralazine HCl 50 mg PO Q8H #90 tablet Metoprolol [Lopressor TAB] 25 mg PO BID #60 tablet NIFEdipine [Nifedipine ER] 30 mg PO Q12H #60 tablet.er
[2020-08-31] MEDS: METOPROLOL TARTRATE 25 MG TAB PO SCH (09:21)
[2020-08-31] MEDS: NIFEdipine XL 30 MG TAB PO SCH (09:22)
[2020-08-31 12:29] VITALS: BP 120/77
== END 2020-08-31 16:42 | DRG 871 ==
LOC: ED 16:37 → 3A 22:52 → OBSVTOIN 08-26 09:16 → 3A 08-30 16:58
PROVIDERS: ADMIT Internal Medicine Geriatric Medicine; ATTEND Internal Medicine
DX: A41.9 Sepsis, unspecified organism (principal); G92 Toxic encephalopathy; U07.1 COVID-19; E87.1 Hypo-osmolality and hyponatremia; N30.01 Acute cystitis with hematuria; I10 Essential (primary) hypertension; J45.909 Unspecified asthma, uncomplicated; I16.0 Hypertensive urgency; Z79.899 Other long term (current) drug therapy
CPT/HCPCS: 36415; 70450; 71045; 80048; 80053; 81001; 82140; 82550; 82962; 83735; 84443; 84484; 85007; 85025; 85610; 85730; 87040; 93005; 96365; 96375; G0378; J0360; J0696; J7040; U0003